=== PATIENT | female | born 1965 | race Caucasian/White ===

== ENCOUNTER 2023-08-04 10:43 | Outpatient (OUT) | payer MEDICARE, SELFPAY ==
--- NOTE | 2023-08-04 | XR_ITS ---
The [address] [address] Patient Name: SHARRI ZAMORA MRN: [id number] date: 1965 Sex: F Assigned Patient Location: Current Patient Location: Accession/Order Number: [id number] Exam Date: 08/04/2023 10:45 Report Date: 08/04/2023 14:21 At the request of: PAULO NAJERA Procedure: XR foot RT min 3V PROCEDURE: XR foot RT min 3V, XR ankle RT min 3V COMPARISON: None. HISTORY: RIGHT FOOT PAIN FINDINGS: BONES:Hindfoot inversion with asymmetric marked narrowing of the medial tibiotalar joint. 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 Moderate enthesopathic spurring of the calcaneus at the Achilles and plantar insertions. Remote fracture with internal fixation utilizing a plate and screws across the lateral fifth metatarsal SOFT TISSUES:Negative. No visible soft tissue swelling. Heterotopic ossification EFFUSION:None visible. OTHER: Negative. 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
--- NOTE | 2023-08-04 | XR_ITS ---
The [address] [address] Patient Name: SHARRI ZAMORA MRN: [id number] date: 1965 Sex: F Assigned Patient Location: Current Patient Location: Accession/Order Number: [id number] Exam Date: 08/04/2023 10:45 Report Date: 08/04/2023 14:21 At the request of: PAULO NAJERA Procedure: XR ankle RT min 3V PROCEDURE: XR foot RT min 3V, XR ankle RT min 3V COMPARISON: None. HISTORY: RIGHT FOOT PAIN FINDINGS: BONES:Hindfoot inversion with asymmetric marked narrowing of the medial tibiotalar joint. 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 Moderate enthesopathic spurring of the calcaneus at the Achilles and plantar insertions. Remote fracture with internal fixation utilizing a plate and screws across the lateral fifth metatarsal SOFT TISSUES:Negative. No visible soft tissue swelling. Heterotopic ossification EFFUSION:None visible. OTHER: Negative. 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
== END 2023-08-04 10:44 | disposition home or self-care (01) ==
LOC: EC 10:44
PROVIDERS: Family Provider Internal Medicine; Visit Provider Podiatrist Foot & Ankle Surgery
DX: M25.571 Pain in right ankle and joints of right foot (principal); M79.671 Pain in right foot; M19.071 Primary osteoarthritis, right ankle and foot
CPT/HCPCS: 73610; 73630